=== PATIENT | female | born 1945 | race Caucasian/White ===

== ENCOUNTER 2016-12-14 17:33 | Emergency (ER) | payer MEDICARE ==
[~2016-12-14] VITALS: Ht 154.9 cm; Wt 92.5 kg
[~2016-12-14 17:33] MED LIST: ALEN70 PO; BACT2OIN TOP; CLOP75 PO; COMBAER INH; CYMB60CA PO; ERYT400T4 PO; FERREX; LISI10TA PO; LORT5TAB PO; MUCI600T PO; NIFEREX; POTA-243 PO; VITA10002 PO; ZOCO40TA PO
[2016-12-14 17:38] VITALS: BP 135/65; PULSE 63; RESP 16; TEMP 98.4; O2SAT 94
--- NOTE | 2016-12-14 18:09 | PD ---
HPI Chief Complaint: Bleeding Time Seen by Provider: 18:03 Travel History International Travel<30 days: No Contact w/Intl Traveler<30days: No Traveled to known affect area: No History of Present Illness HPI 71-year-old female history of varicose veins presents via EMS for evaluation of bleeding spontaneously from a varicose vein. She reports that prior to arrival she was standing and she began bleeding from a varicose vein on the lateral right lower leg. The bleeding stopped after paramedics wrapped the wound. It is not currently bleeding. She denies any pain or trauma to the skin. She has no other complaints at this time. PFSH Past Medical History Asthma: Yes Cardiovascular Problems: Yes (htn) High Cholesterol: Yes Cerebrovascular Accident: Yes Diabetes: Yes Hypertension: Yes Psychiatric: Yes Tubal Ligation: Yes Past Surgical History Appendectomy: Yes Cholecystectomy: Yes Hysterectomy: Yes Neurologic Surgery: Yes (C-SPINE FUSION) Other Surgery: Yes (BREAST AUGMENTATION -- VARICOSE VEINS) Social History Alcohol Use: No Tobacco Use: No Substance Use: No Allergies-Medications (Allergen,Severity, Reaction): Coded Allergies: Iodinated Contrast- Oral and IV Dye (Verified Allergy, Severe, 12/14/16) "FELT LIKE I WAS HAVING A STROKE AND A HEART ATTACK AT THE SAME TIME" aspirin (Unverified Allergy, Severe, 12/14/16) UKN REACTION cephalexin (Verified Allergy, Severe, Rash, 12/14/16) morphine (Unverified Allergy, Severe, 12/14/16) UKN REACTION Uncoded Allergies: raw onions (Allergy, Unknown, 10/22/02) Reported Meds & Prescriptions Reported Meds & Active Scripts Active Bactroban (Mupirocin) 22 Gm Oint 2 % TOP BID APPLY TO AFFECTED AREAS Combivent (Albuterol/Ipratropium) 14.7 Gm Aer 2 Puff INH Q6H Ees 400 (Erythromycin Ethylsuccinate) 400 Mg Tab 400 Mg PO TID Reported Lortab 5/500 (Acetaminophen/Hydrocodone Bitart) 5 Mg/500 Mg Tab 1 Tab PO FOR PAIN Fosamax (Alendronate Sodium) 70 Mg Tab 70 Mg PO WEEKLY [Niferex] 150 [Ferrex] Cymbalta (Duloxetine HCl) 60 Mg Cap 60 Mg PO DAILY Lisinopril/Hctz 20/12.5 (HCTZ/Lisinopril) Tab 1 Tab PO DAILY Zocor (Simvastatin) 40 Mg Tab 40 Mg PO HS Klor-Con 10 Meq (Potassium Chloride) 10 Meq Tabcr 40 Meq PO ONCE Plavix (Clopidogrel Bisulfate) 75 Mg Tab 75 Mg PO DAILY Vitamin B12 (Cyanocobalamin) 1,000 Mcg Tab 1,000 Mcg PO DAILY Mucinex (Guaifenesin) 600 Mg Tabcr 600 Mg PO BID Review of Systems General / Constitutional: No: Fever Musculoskeletal: No: Limited ROM Skin: Positive Other (positive for abrasion, bleeding varicose vein lateral right lower leg.) Physical Exam Narrative GENERAL: Well-nourished female in no acute distress SKIN: Warm and dry. CARDIOVASCULAR: Regular rate and rhythm. No murmur appreciated. RESPIRATORY: No accessory muscle use. Clear to auscultation. Breath sounds equal bilaterally. MUSCULOSKELETAL: No obvious deformities. Examination of the legs reveals rare close veins bilaterally. There is a small abrasion to the lateral right lower leg which is where the bleeding was previously coming from. The wound is currently clean and dry and not bleeding actively. NEUROLOGICAL: Awake and alert. No obvious cranial nerve deficits. Motor grossly within normal limits. Normal speech. Data Data Last Documented VS Vital Signs Date Time Temp Pulse Resp B/P (MAP) Pulse Ox O2 Delivery O2 Flow Rate FiO2 12/14/16 17:38 98.4 63 16 135/65 (88) 94 Room Air Orders Orders Gelatin 12 Mm/7 Mm Top (Gelfoam 12 Mm/7 (12/14/16 18:15) Wound Care (12/14/16 18:03) MDM Medical Decision Making Medical Screen Exam Complete: Yes Emergency Medical Condition: Yes Medical Record Reviewed: Yes Differential Diagnosis Bleeding varicose vein, arterial bleeding, abrasion Narrative Course The patient appears to have had an episode of bleeding from one of her an engorged varicose veins. It is not currently bleeding. Plan is for pressure dressing with Gelfoam, Telfa, gauze, Robert, Harley wrap. She is encouraged to leave the dressing on for 2 days and to elevate the legs to reduce venous engorgement. She understands to return here for any new or worsening symptoms. Diagnosis Primary Impression: Bleeding from varicose vein Additional Instructions: Elevate the legs as much as possible to reduce venous engorgement. Keep the dressing on for 2 days. Follow up close with primary care physician and return for any acutely new or worsening symptoms. Med/Other Pt SpecificInfo: Wound Care Disposition: 01 DISCHARGE HOME Condition: Stable Mj Zambrano Dec 14, 2016 18:09
[2016-12-14] MEDS ORDERED: GELATIN 12 MM/7 MM FOAM TOPICAL ONE (18:15)
== END 2016-12-14 20:18 | disposition home or self-care (01) ==
LOC: NEPK 17:33
DX: I83.891 Varicose veins of right lower extremity with other complications (principal); I10 Essential (primary) hypertension; E11.9 Type 2 diabetes mellitus without complications; E78.00 Pure hypercholesterolemia, unspecified
CPT/HCPCS: 12001

== ENCOUNTER 2017-03-22 20:03 | Emergency (ER) | payer MEDICAID, MEDICARE, OTHER ==
[~2017-03-22] VITALS: Ht 154.9 cm; Wt 91.6 kg
[2017-03-22 20:06] VITALS: BP 150/77; PULSE 70; RESP 16; TEMP 98.3; O2SAT 96
--- NOTE | 2017-03-22 20:48 | RADRPT ---
EXAM DATE/TIME: 03/22/2017 20:29 [place] COMPARISON: No previous studies available for comparison. INDICATIONS : Chest pain. MEDICAL HISTORY : Congestive heart failure. Asthma. SURGICAL HISTORY : Right shoulder replacement. ENCOUNTER: Initial ACUITY: 2 days PAIN SCORE: 6/10 LOCATION: Bilateral chest FINDINGS: PA and lateral views of the chest demonstrate the lungs to be symmetrically aerated without evidence of mass, infiltrate or effusion. The cardiomediastinal contours are unremarkable. Osseous structure s are intact. CONCLUSION: No acute intrathoracic disease. Papo Conti MD on March 22, 2017 at 20:46 Board Certified Radiologist. This report was verified electronically.
[2017-03-22 22:12] LABS: AUTOMATED NEUTROPHIL # 3.2 TH/MM3 (1.8-7.7); BASOPHIL % 0.6 % (0.0-2.0); EOSINOPHIL # 0.3 TH/MM3 (0-0.4); EOSINOPHIL % 4.8 % (0.0-4.0); HEMATOCRIT 37.8 % (35.0-46.0); HEMOGLOBIN 12.4 GM/DL (11.6-15.3); LYMPH % 31.3 % (9.0-44.0); LYMPHOCYTE # 1.8 TH/MM3 (1.0-4.8); MEAN CELL VOLUME 79.6 FL (80.0-100.0); MEAN CORPUSCULAR HEMOGLOBIN 26.1 PG (27.0-34.0); MEAN CORPUSCULAR HGB CONC 32.8 % (32.0-36.0); MEAN PLATELET VOLUME 7.8 FL (7.0-11.0); MONO % 7.1 % (0.0-8.0); MONOCYTE # 0.4 TH/MM3 (0-0.9); NEUT % 56.2 % (16.0-70.0); PLATELET COUNT 200 TH/MM3 (150-450); RED BLOOD COUNT 4.75 MIL/MM3 (4.00-5.30); RED CELL DISTRIBUTION WIDTH 16.2 % (11.6-17.2); WHITE BLOOD COUNT 5.7 TH/MM3 (4.0-11.0)
[2017-03-22 22:38] LABS: BICARBONATE 32.9 MEQ/L (21.0-32.0); BLOOD UREA NITROGEN 19 MG/DL (7-18); CALCIUM 9.4 MG/DL (8.5-10.1); CHLORIDE 105 MEQ/L (98-107); CREATININE 0.87 MG/DL (0.50-1.00); GLOMERULAR FILTRATION RATE 64 ML/MIN (>89); GLUCOSE,RANDOM 125 MG/DL (74-106); MAGNESIUM 2.4 MG/DL (1.5-2.5); SODIUM (NA) 145 MEQ/L (136-145)
[2017-03-22 22:42] LABS: TROPONIN I LESS THAN 0.02 NG/ML (0.02-0.05)
[2017-03-23] VITALS: BP_SYST 118; BP_SYST 138; BP_DIAS 76; BP_DIAS 84; PULSE 76; RESP 18; O2SAT 96
--- NOTE | 2017-03-23 00:02 | PD ---
HPI Chief Complaint: Edema Time Seen by Provider: 23:17 Travel History International Travel<30 days: No Contact w/Intl Traveler<30days: No Traveled to known affect area: No History of Present Illness HPI Patient is a 72-year-old female who is down here for a month from [facility]. She is visiting her daughter who is taking custody from her great-granddaughter a [id number] who is disabled and a brand-new . She is saying she is not getting enough sleep she feels tired she feels weak she thinks her feet are swelling. She is on furosemide 20 mg daily and doubles up on and Sundays but that is a regular judgment for years and she has not increased didn' t know her has it affected her feet she feels the swelling is worsening . She has not seem another MD for this complaints. Denies change in Medications PFSH Past Medical History Arthritis: Yes (RA) Asthma: Yes Cardiovascular Problems: Yes (HEART MURMER) High Cholesterol: Yes Cerebrovascular Accident: Yes (TIA) Diabetes: Yes (TYPE 2) Patient Takes Glucophage: Yes Gastrointestinal Disorders: Yes (diverticulitis) Hypertension: Yes Neurologic: Yes (NEUROPATHY) Psychiatric: Yes Sleep Apnea: Yes (CPAP) Tubal Ligation: Yes Past Surgical History Abdominal Surgery: Yes (HERNIA REPAIR X5) Appendectomy: Yes Cholecystectomy: Yes Eye Surgery: Yes (BILAT CATARACT) Hysterectomy: Yes (FULL) Neurologic Surgery: Yes (C-SPINE FUSION) Other Surgery: Yes (BREAST AUGMENTATION/REMOVED -- VARICOSE VEINS, NASAL, ESOPHAGUS STRETCHED) Social History Alcohol Use: No Tobacco Use: No Substance Use: No Allergies-Medications (Allergen,Severity, Reaction): Coded Allergies: Iodinated Contrast- Oral and IV Dye (Verified Allergy, Severe, 03/23/17) "FELT LIKE I WAS HAVING A STROKE AND A HEART ATTACK AT THE SAME TIME" aspirin (Unverified Allergy, Severe, 03/23/17) UKN REACTION cephalexin (Verified Allergy, Severe, Rash, 03/23/17) morphine (Unverified Allergy, Severe, 03/23/17) UKN REACTION Uncoded Allergies: raw onions (Allergy, Unknown, 10/22/02) Reported Meds & Prescriptions Reported Meds & Active Scripts Active Bactrim DS (Sulfamethoxazole-Trimethoprim) 800-160 Mg Tab 1 Tab PO BID Bactroban 2% Oint (22 gm) (Mupirocin) 22 Gm Oint 2 % TOP BID APPLY TO AFFECTED AREAS Combivent (Albuterol/Ipratropium) 14.7 Gm Aer 2 Puff INH Q6H Ees 400 (Erythromycin Ethylsuccinate) 400 Mg Tab 400 Mg PO TID Reported Lortab 5/500 (Acetaminophen/Hydrocodone Bitart) 5 Mg/500 Mg Tab 1 Tab PO FOR PAIN Fosamax (Alendronate Sodium) 70 Mg Tab 70 Mg PO WEEKLY [Niferex] 150 [Ferrex] Cymbalta (Duloxetine HCl) 60 Mg Cap 60 Mg PO DAILY Lisinopril/Hctz 10 mg/12.5 mg 10 mg/12.5 mg Tab 1 Tab PO DAILY Zocor 40 mg (Simvastatin) 40 Mg Tab 40 Mg PO HS Klor-Con 10 Meq (Potassium Chloride) 10 Meq Tabcr 40 Meq PO ONCE Plavix (Clopidogrel Bisulfate) 75 Mg Tab 75 Mg PO DAILY Vitamin B12 (Cyanocobalamin) 1,000 Mcg Tab 1,000 Mcg PO DAILY Mucinex (Guaifenesin) 600 Mg Tabcr 600 Mg PO BID Review of Systems Except as stated in HPI: all other systems reviewed are Neg Cardiovascular: Positive: Edema (feet, and tired feeling in legs) Physical Exam Narrative GENERAL: No apparent distress SKIN: Warm and dry. HEAD: Atraumatic. Normocephalic. EYES: Pupils equal and round. No scleral icterus. No injection or drainage. ENT: No nasal bleeding or discharge. Mucous membranes pink and moist. NECK: Trachea midline. No JVD. CARDIOVASCULAR: Regular rate and rhythm. RESPIRATORY: No accessory muscle use. Clear to auscultation. Breath sounds equal bilaterally. GASTROINTESTINAL: Abdomen soft, non-tender, nondistended. Hepatic and splenic margins not palpable. MUSCULOSKELETAL: Extremities no significant edema noted no pitting, without clubbing, cyanosis, No obvious deformities. NEUROLOGICAL: Awake and alert. No obvious cranial nerve deficits. Motor grossly within normal limits. Five out of 5 muscle strength in the arms and legs. Normal speech. PSYCHIATRIC: Appropriate mood and affect; insight and judgment normal. Data Data Last Documented VS Orders Orders Electrocardiogram (03/22/17 20:12) Basic Metabolic Panel (Bmp) (03/22/17 20:12) B-Type Natriuretic Peptide (03/22/17 20:12) Ckmb (Isoenzyme) Profile (03/22/17 20:12) Complete Blood Count With Diff (03/22/17 20:12) Magnesium (Mg) (03/22/17 20:12) Prothrombin Time / Inr (Pt) (03/22/17 20:12) Act Partial Throm Time (Ptt) (03/22/17 20:12) Troponin I (03/22/17 20:12) Chest, Pa & Lat (03/22/17 20:12) CKMB (03/22/17 21:55) CKMB% (03/22/17 21:55) Urinalysis - C+S If Indicated (03/23/17 00:08) Influenzae A/B Antigen (03/23/17 00:08) Acetaminophen (Tylenol) (03/23/17 00:15) Urine Culture (03/23/17 00:20) Sulfamet-Trimeth Ds 800-160 Mg (Bactrim (03/23/17 02:15) Ed Discharge Order (03/23/17 02:53) Labs Laboratory Tests Test 03/22/17 21:55 03/23/17 00:20 White Blood Count 5.7 TH/MM3 Red Blood Count 4.75 MIL/MM3 Hemoglobin 12.4 GM/DL Hematocrit 37.8 % Mean Corpuscular Volume 79.6 FL Mean Corpuscular Hemoglobin 26.1 PG Mean Corpuscular Hemoglobin Concent 32.8 % Red Cell Distribution Width 16.2 % Platelet Count 200 TH/MM3 Mean Platelet Volume 7.8 FL Neutrophils (%) (Auto) 56.2 % Lymphocytes (%) (Auto) 31.3 % Monocytes (%) (Auto) 7.1 % Eosinophils (%) (Auto) 4.8 % Basophils (%) (Auto) 0.6 % Neutrophils # (Auto) 3.2 TH/MM3 Lymphocytes # (Auto) 1.8 TH/MM3 Monocytes # (Auto) 0.4 TH/MM3 Eosinophils # (Auto) 0.3 TH/MM3 Basophils # (Auto) 0.0 TH/MM3 CBC Comment DIFF FINAL Differential Comment Prothrombin Time 10.0 SEC Prothromb Time International Ratio 1.0 RATIO Activated Partial Thromboplast Time 25.1 SEC Blood Urea Nitrogen 19 MG/DL Creatinine 0.87 MG/DL Random Glucose 125 MG/DL Calcium Level 9.4 MG/DL Magnesium Level 2.4 MG/DL Sodium Level 145 MEQ/L Potassium Level 3.8 MEQ/L Chloride Level 105 MEQ/L Carbon Dioxide Level 32.9 MEQ/L Anion Gap 7 MEQ/L Estimat Glomerular Filtration Rate 64 ML/MIN Total Creatine Kinase 159 U/L Creatine Kinase MB 1.4 NG/ML Troponin I LESS THAN 0.02 NG/ML B-Type Natriuretic Peptide 20 PG/ML Urine Color YELLOW Urine Turbidity CLEAR Urine pH 6.0 Urine Specific [place] 1.023 Urine Protein TRACE mg/dL Urine Glucose (UA) NEG mg/dL Urine Ketones NEG mg/dL Urine Occult Blood NEG Urine Nitrite NEG Urine Bilirubin NEG Urine Urobilinogen 4.0 MG/DL Urine Leukocyte Esterase LARGE Urine RBC 2 /hpf Urine WBC 11 /hpf Urine Squamous Epithelial Cells 2 /hpf Urine Transitional Epithelial Cells <1 /hpf Urine Calcium Oxalate Crystals RARE /hpf Urine Bacteria RARE /hpf Urine Hyaline Casts 1 /lpf Urine Mucus FEW /lpf Microscopic Urinalysis Comment CULTURE INDICATED MDM Medical Decision Making Medical Screen Exam Complete: Yes Emergency Medical Condition: Yes Differential Diagnosis Pt could have venous insufficiency and valvular incompetence vs excessive standing vs excessive salt intake vs renal or cardiogenic causes of the minimla fluid she feels , I see no eveidence of significant edema and no signs to suggest cardiac or renal causes and no need for further eval in Er Narrative Course Labs and Urine showing WBC and leuko will treat as UTI and no need for diuretic at this time as no signs of fluid overload. Diagnosis Primary Impression: UTI (urinary tract infection) Patient Instructions: General Instructions, Urinary Tract Infection in Women ( ED) Scripts Sulfamethoxazole-Trimethoprim (Bactrim DS) 800-160 Mg Tab 1 TAB PO BID for Infection, #14 TAB 0 Refills Prov: Richy Sequeira MD 03/23/17 Disposition: 01 DISCHARGE HOME Condition: Good Richy Sequeira MD Mar 23, 2017 00:02
[2017-03-23] MEDS ORDERED: ACETAMINOPHEN 325 MG TAB PO ONE (00:15)
[2017-03-23 00:43] LABS: BACTERIA, URINE RARE /hpf; BILIRUBIN, URINE NEG (NEG); BLOOD, URINE NEG (NEG); CALCIUM OXALATE CRYSTALS,URINE RARE /hpf; GLUCOSE,URINE NEG (NEG); HYALINE CAST, URINE 1 /lpf (RARE); KETONE, URINE NEG (NEG); MUCUS URINE FEW /lpf (OCC); NITRITE,URINE NEG (NEG); SQUAMOUS EPITHELIAL CELL URINE 2 /hpf (0-5); TRANSITIONAL EPI CELLS, URINE <1 /hpf; URINE COLOR YELLOW (YELLW/STRAW); URINE LEUKOCYTE ESTERASE LARGE (NEG)
[2017-03-23] MEDS ORDERED: SULFAMETHOXAZOLE-TRIMETHOPRIM DS 800-160 MG TAB PO ONE (02:15)
[2017-03-23] MEDS ORDERED: BACT800T5 PO (02:52)
--- NOTE | 2017-03-23 20:29 | EKG ---
Date Performed: 03/22/2017 Time Performed: 21:47:04 PTAGE: 72 years EKG: SINUS BRADYCARDIA LEFT VENTRICULAR HYPERTROPHY AND ST-T CHANGE POSSIBLE LATERAL MYOCARDIAL INFARCTION ABNORMAL ECG Since the prior tracing, there has been no significant change PREVIOUS TRACING : 10/12/2003 22.38 DOCTOR: Darrell Berry Interpretating Date/Time 03/23/2017 20:21:48
== END 2017-03-23 03:30 | disposition home or self-care (01) ==
LOC: NEPE 20:03
DX: N39.0 Urinary tract infection, site not specified (principal); I10 Essential (primary) hypertension; I50.9 Heart failure, unspecified; E78.00 Pure hypercholesterolemia, unspecified; E11.9 Type 2 diabetes mellitus without complications; M06.9 Rheumatoid arthritis, unspecified; J45.909 Unspecified asthma, uncomplicated; R94.31 Abnormal electrocardiogram [ECG] [EKG]; Z86.73 Personal history of transient ischemic attack (TIA), and cerebral infarction without residual deficits; Z88.8 Allergy status to other drugs, medicaments and biological substances; Z79.899 Other long term (current) drug therapy
CPT/HCPCS: 71046; 80048; 81001; 82550; 82552; 83735; 83880; 84484; 85025; 85610; 85730; 87086; 87804; 93005; 99285

== ENCOUNTER 2017-11-14 19:45 | Observation (INO) ==
[2017-11-14 21:04] LABS: Baso % (Auto) 0.3 % (0.0-2.0); Eos # (Auto) 0.2 th/mm3 (0.0-0.4); Eos % (Auto) 2.8 % (0.0-4.0); Hematocrit 36.7 % (35.0-46.0); Lymph % (Auto) 26.8 % (9.0-44.0); Mean Corpuscular HGB Conc 32.7 % (32.0-36.0); Mean Corpuscular Hemoglobin 25.5 pg (27.0-34.0); Mean Platelet Volume 8.4 fL (7.0-11.0); Mono # (Auto) 0.5 th/mm3 (0.0-0.9); Mono % (Auto) 7.1 % (0.0-8.0); Neut # (Auto) 4.8 th/mm3 (1.8-7.7); Platelet Count 217 th/mm3 (150-450); Red Blood Count 4.71 mil/mm3 (4.00-5.30); Red Cell Distribution Width 17.2 % (11.6-17.2); White Blood Count 7.6 th/mm3 (4.0-11.0)
[2017-11-14 21:19] LABS: Albumin 3.8 g/dL (3.4-5.0); Anion Gap 8 meq/L (5-15); Aspartate Aminotransferase 117 U/L (15-37); Blood Urea Nitrogen 18 mg/dL (7-18); Calcium 9.4 mg/dL (8.5-10.1); Chloride 109 meq/L (98-107); Glomerular Filtration Rate 81 mL/min (>89); Glucose,Random 97 mg/dL (74-106); Potassium 4.1 meq/L (3.5-5.1); Sodium 144 meq/L (136-145)
[2017-11-14 21:20] LABS: Alanine Aminotransferase 69 U/L (10-53)
--- NOTE | 2017-11-14 21:23 | XR ---
EXAM DATE: 11/14/2017 8:28 PM EDT AGE/SEX: 72 years / Female INDICATIONS: Short of breath. CLINICAL DATA: This is the patient's initial encounter. Patient reports that signs and symptoms have been present for 1 day and indicates a pain score of 5/10. MEDICAL/SURGICAL HISTORY: Non-responsive. Non-responsive. COMPARISON: [facility] [place], CHEST PA & LAT, 03/22/2017. . FINDINGS: Mild perihilar infiltrates are present. No pleural effusion. No pneumothorax. Heart size stable, within normal limits. CONCLUSION: Mild edema and/or atypical infiltrates. Electronically signed by: Abhishek Gonzalez MD 11/14/2017 9:21 PM EDT
[2017-11-14 21:24] LABS: Alkaline Phosphatase 99 U/L (45-117); Total Protein 6.7 g/dL (6.4-8.2)
--- NOTE | 2017-11-14 23:07 | CT ---
EXAM DATE: 11/14/2017 10:01 PM EDT AGE/SEX: 72 years / Female INDICATIONS: Epigastric pain that radiates to back. CLINICAL DATA: This is the patient's initial encounter. Patient reports that signs and symptoms have been present for 1 day and indicates a pain score of 4/10. MEDICAL/SURGICAL HISTORY: Diabetes. Hypertension. Carcinoma, skin cancer. Appendectomy. Hysterec kamari. Hernia surgery. RADIATION DOSE: 9.02 CTDI (mGy) COMPARISON: No prior exams available for comparison. TECHNIQUE: Volumetric scanning was performed using a multi-row detector CT scanner during bolus infu quentin of 100 ml Omnipaque 350 (iohexol) nonionic water-soluble contrast as a single exam dose. The d kyleigh was post processed with a variety of visualization algorithms including full volume maximum inten sity projection, multi-planar sliding thin slab reformation, curved planar reformation, and surface r endering techniques. Using automated exposure control and adjustment of the mA and/or kV according t o patient size, radiation dose was kept as low as reasonably achievable to obtain optimal diagnostic quality images. DICOM format image data is available electronically for review and comparison. FINDINGS: Angiographic Findings: Ascending: Normal in [place] without evidence for dissection. Arch: Normal 3 vessel arch anatomy. Proximal arch vessels are patent. Arch is normal in caliber witho ut dissection. Descending: Normal in [place] without evidence for dissection. Abdominal Aorta: Normal in caliber without significant flow limiting stenosis or dissection. Iliacs: The iliac arteries are patent and non-aneurysmal Renal Arteries: Single patent renal arteries. Mesenteric Arteries: Mild stenosis of the celiac and SMA origins secondary to eccentric plaque. [place] i s patent.: General Findings: LUNGS: Minimal groundglass opacities in the inferior lower lobes bilaterally likely reflecting volum e loss. PLEURA: No effusion, significant pleural thickening or pneumothorax. MEDIASTINUM: Heart is unremarkable without pericardial effusion. Mild coronary artery calcifications . No evidence of mediastinal or hilar adenopathy. LIVER: Diffusely decreased hepatic attenuation without significant focal mass or intrahepatic ductal dilatation. Gallbladder is surgically absent. SPLEEN: Normal in size. 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 PANCREAS: Fatty replaced. KIDNEYS: Kidneys demonstrate symmetrical enhancement and are symmetrical in size without evidence fo r radiopaque renal calculi or hydronephrosis. ADRENAL GLANDS: Unremarkable. BOWEL/MESENTERY: Mild to moderate sigmoid diverticulosis and scattered colonic diverticula. No signi ficant inflammatory change to suggest diverticulitis. Bowel loops are normal in caliber without evide nce for obstruction. No free air or free fluid. No pneumatosis. ABDOMINAL WALL: Intact. RETROPERITONEUM: No evidence of adenopathy in the retrocrural, para-aortic, or deep pelvic regions. BLADDER: Contours are smooth. REPRODUCTIVE: No abnormal masses or calcifications seen. BONY STRUCTURES: Degenerative spondylosis of the lumbar spine most prominently at L3-S1. CONCLUSION: 1. No evidence for aortic dissection or aneurysm. 2. Mild celiac and SMA stenosis. Patent [place]. 3. Diffusely decreased hepatic attenuation consistent with hepatic steatosis versus medical liver di sease. 4. Colonic diverticulosis without definitive evidence for diverticulitis. Electronically signed by: Con Brown MD 11/14/2017 11:06 PM EDT
--- NOTE | 2017-11-14 23:22 | ED ---
HPI General Chief complaint: Abdominal Pain Stated complaint: Abd Pain Time Seen by Provider: 11/14/17 20:21 History of Present Illness HPI narrative: This is a 72-year-old female presents emergency department for evaluation of pain just underneath her left breast which started about an hour prior to arrival. Does endorse diaphoresis she is also endorses mild nausea. Denies shortness of breath. states the pain radiated up into her chest as well as into her back. Recently traveled today. Patient states that she sees a interior design faculty member because she has a history of heart murmur but does not know when the last time she had a stress test or cardiac catheterization. Symptoms were severe, now resolved, associated signs symptoms in context as above. Of note the patient does state that she has a history of IV contrast allergy however on her description it sounds more like she is having allergy to thallium from a thallium stress test. She was told that her physician told her that it looked like she had a heart attack and a stroke after receiving the medication. Related Data Allergies Allergy/AdvReac Type Severity Reaction Status Date / Time aspirin Allergy Severe . Verified 11/14/17 23:14 cephalexin Allergy Severe Rash Verified 11/14/17 23:14 morphine Allergy Severe . Verified 11/14/17 23:14 raw onions Allergy Unknown . Uncoded 11/14/17 23:14 Review of Systems ROS: all other systems reviewed are negative PMFSH Medical History Medical History Appendicitis (Acute) Chronic back pain (Acute) Chronic knee pain (Acute) Diabetes (Acute) Diverticula of colon (Acute) Fusion of spine, cervical region (Acute) H/O: hysterectomy (Acute) Hypertension (Acute) MRSA infection (Acute) Neuropathy (Acute) Skin cancer (Acute) Surgical History Surgical History H/O eye surgery (Acute) H/O foot surgery (Acute) H/O shoulder replacement (Acute) History of hernia surgery (Acute) Social History Social History Substance History: No History of Abuse Second Hand Smoke Exposure: No Smoking Status: Never smoker How Often Do You Have a Drink Containing Alcohol: Never Recent Travel in [facility] within the Last 8 Weeks: No Immunization History Tetanus Immunization: >5 Years Hx Influenza Vaccine This Season: No Exam Narrative Exam Narrative: GENERAL: Well-developed well-nourished no obvious distress. SKIN: Focused skin assessment warm/dry. HEAD: Atraumatic. Normocephalic. EYES: Pupils equal and round. No scleral icterus. No injection or drainage. ENT: No nasal bleeding or discharge. Mucous membranes pink and moist. NECK: Trachea midline. No JVD. CARDIOVASCULAR: Regular rate and rhythm. No murmur appreciated. RESPIRATORY: No accessory muscle use. Clear to auscultation. Breath sounds equal bilaterally. GASTROINTESTINAL: Abdomen soft, non-tender, nondistended. Hepatic and splenic margins not palpable. MUSCULOSKELETAL: No obvious deformities. No clubbing. No cyanosis. No edema. NEUROLOGICAL: Awake and alert. No obvious cranial nerve deficits. Motor grossly within normal limits. Normal speech. PSYCHIATRIC: Appropriate mood and affect; insight and judgment normal. Course Initial Documented Vital Signs Temperature 98.0 F 11/14/17 19:59 Pulse Rate 55 L 11/14/17 19:59 Respiratory Rate 15 11/14/17 19:59 Blood Pressure 172/77 H 11/14/17 19:59 Pulse Oximetry 91 L 11/14/17 19:59 Last Documented Vital Signs Temperature 98.0 F 11/14/17 19:59 Pulse Rate 55 L 11/14/17 19:59 Respiratory Rate 15 11/14/17 19:59 Blood Pressure 172/77 H 11/14/17 19:59 Pulse Oximetry 98 11/14/17 20:09 Medical Decision Making MDM Narrative Medical decision making narrative: Patient room to the emergency department, given the chest pain radiating to her back, it is reasonable to consider aortic pathology as a possible cause of her pain. A CTA was performed patient tolerated fine without any premedication. CTA showed only minimal stenosis of her SMA which I do not think is consistent with her pain. She looks completely well and her abdomen is benign. I think coronary artery disease is still a consideration the patient will be admitted to chest pain center. PE was also considered but I think it is fairly low on the differential. She has not had any shortness of breath. No hemoptysis. Discussed the role results with the patient and she will be admitted and she is agreeable. She also has aspirin on her allergy list, however she takes aspirin daily. Medical Screen Exam Complete: Yes Emergency Medical Condition: Yes Differential Diagnosis Differential Diagnosis: ACS, CO, gastritis, gastroenteritis, aortic dissection, aortic aneurysm. Lab Data Result diagrams: 11/14/17 20:10 11/14/17 20:10 Lab Results 11/14/17 11/14/17 Range/Units 20:10 20:10 WBC 7.6 (4.0-11.0) th/mm3 RBC 4.71 (4.00-5.30) mil/mm3 Hgb 12.0 (11.6-15.3) gm/dL Hct 36.7 (35.0-46.0) % MCV 78.0 L (80.0-100.0) fL MCH 25.5 L (27.0-34.0) pg MCHC 32.7 (32.0-36.0) % RDW 17.2 (11.6-17.2) % Plt Count 217 (150-450) th/mm3 MPV 8.4 (7.0-11.0) fL Neut % (Auto) 63.0 (16.0-70.0) % Lymph % (Auto) 26.8 (9.0-44.0) % Martin % (Auto) 7.1 (0.0-8.0) % Eos % (Auto) 2.8 (0.0-4.0) % Baso % (Auto) 0.3 (0.0-2.0) % Neut # (Auto) 4.8 (1.8-7.7) th/mm3 Lymph # (Auto) 2.0 (1.0-4.8) th/mm3 Martin # (Auto) 0.5 (0.0-0.9) th/mm3 Eos # (Auto) 0.2 (0.0-0.4) th/mm3 Baso # (Auto) 0.0 (0.0-0.2) th/mm3 WBC Differential . Differential Comment Auto diff final Sodium 144 (136-145) meq/L Potassium 4.1 (3.5-5.1) meq/L Chloride 109 H (98-107) meq/L Carbon Dioxide 27.0 (21.0-32.0) meq/L Anion Gap 8 (5-15) meq/L BUN 18 (7-18) mg/dL Creatinine 0.71 (0.50-1.00) mg/dL Estimated GFR 81 L (>89) mL/min Random Glucose 97 (74-106) mg/dL Calcium 9.4 (8.5-10.1) mg/dL Total Bilirubin 0.4 (0.2-1.0) mg/dL AST 117 H (15-37) U/L ALT 69 H (10-53) U/L Alkaline Phosphatase 99 (45-117) U/L Troponin I Less than 0.02 L (0.02-0.05) ng/mL Total Protein 6.7 (6.4-8.2) g/dL Albumin 3.8 (3.4-5.0) g/dL Imaging Data Radiologist's impression: Chest X-Ray 11/14/17 20:28 CONCLUSION: Mild edema and/or atypical infiltrates. Thoracic Aorta CT 11/14/17 20:28 CONCLUSION: 1. No evidence for aortic dissection or aneurysm. 2. Mild celiac and SMA stenosis. Patent [place]. 3. Diffusely decreased hepatic attenuation consistent with hepatic steatosis versus medical liver disease. 4. Colonic diverticulosis without definitive evidence for diverticulitis. Discharge Plan Discharge Disposition Patient Disposition: 30 Still Patient Discharge Details Diagnosis: Chest pain Physicians Team ED Provider: Chandler Bryant Primary Care Provider: UNKNOWN, Attending Provider: Loni Moreland Status ED Status: Admitted Observation Patient
[2017-11-15 01:14] LABS: Creatine Kinase 49 U/L (26-192)
[2017-11-15 04:46] LABS: Creatine Kinase 46 U/L (26-192)
[2017-11-15 08:25] VITALS: BP 133/74; TEMP 97.7; O2SAT 95
[2017-11-15 08:47] VITALS: PULSE 52
--- NOTE | 2017-11-15 08:53 | P.HPCA ---
History of Present Illness Primary Care Physician: UNKNOWN Chief Complaint: Chest pain History of Present Illness: 72-year-old female with history of chronic back pain, neuropathy, diabetes, hypertension, and hyperlipidemia presents emergency room for further evaluation of chest pain. Onset last evening. Characterized as sharp. Location left inframammary area with radiation to left shoulder, mid back, and right upper quadrant pain associated symptoms include fatigue and diaphoresis. Denied nausea, vomiting, or dyspnea. Severe in severity. Duration 30 minutes followed by lingering discomfort. No current chest pain. Denies similar pain in the past. No precipitating or relieving factors. No particular position or movement made pain better or worse. No recent illness, fever, or injury. Recently completed full day of travel from [place] to [place]. Plans to remain in [place] for the next month. Past cardiac testing Lexiscan reported normal 2 years ago, completed in [place]. 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 Social history Known hypertension, diabetes, and hyperlipidemia. No known coronary artery disease. Lifelong non-smoker. Denies any alcohol or recreational drug use. - Diagnosis (1) Chest pain (2) History of type 2 diabetes mellitus (3) History of hyperlipidemia (4) History of chronic back pain (5) History of hypertension Review of Systems All other systems reviewed negative except as stated in HPI PMFSH - History History Provided By: Patient - Medical History Medical History: Medical History (Last Reviewed 11/15/17 @ 10:09 by JOSE Boogie) Appendicitis Chronic back pain Chronic knee pain Diabetes Diverticula of colon Fusion of spine, cervical region H/O: hysterectomy Hypertension MRSA infection Neuropathy Skin cancer - Surgical History Surgical History: Surgical History (Last Reviewed 11/15/17 @ 10:09 by JOSE Boogie) H/O eye surgery H/O foot surgery H/O shoulder replacement History of hernia surgery - Social History I have reviewed the patient's Social History: Yes - Tobacco History Second Hand Smoke Exposure: No Tobacco Use In Past 30 Days: No Smoking Status: Never smoker - Alcohol History How Often Do You Have a Drink Containing Alcohol: Never - Substance Use History Substance History: No History of Abuse - Travel History History of Recent Travel: No Recent Travel in the [facility] Within the Last 8 Weeks: No Recent Travel Out of the Country Within the Last 8 Weeks: No - Immunization History Tetanus Immunization: >5 Years Hx Influenza Vaccine This Season: No Medications and Allergies Active Medications: Active Medications Sodium Chloride (Ns Flush) 2 ml IV.FLUSH UNSCH PRN PRN Reason: FLUSH AFTER USING IV ACCESS Last Admin: 11/14/17 23:30 Dose: 2 ml Sodium Chloride (Ns Flush) 2 ml IV.FLUSH PRN PRN PRN Reason: FLUSH AFTER USING IV ACCESS Sodium Chloride (Ns Flush) 2 ml IV.FLUSH BID GRANT Last Admin: 11/15/17 08:09 Dose: 2 ml Allergies Allergy/AdvReac Type Severity Reaction Status Date / Time aspirin Allergy Severe . Verified 11/14/17 23:14 cephalexin Allergy Severe Rash Verified 11/14/17 23:14 morphine Allergy Severe . Verified 11/14/17 23:14 raw onions Allergy Unknown . Uncoded 11/14/17 23:14 Home Medications Medication Instructions Recorded Confirmed Type albuterol sulfate [ProAir HFA] 2 puff INHALATION Q4-6H PRN 11/14/17 11/14/17 History calcium carbonate-vitamin D3 1 tab PO BID 11/14/17 11/14/17 History [Calcium 500 + D] ezetimibe [Zetia] 10 mg PO DAILY 11/14/17 11/14/17 History furosemide 20 mg PO DAILY 11/14/17 11/14/17 History gabapentin 300 mg PO TID 11/14/17 11/14/17 History hydrocodone-acetaminophen 1 tab PO Q6H PRN 11/14/17 11/14/17 History metformin 500 mg PO BID 11/14/17 11/14/17 History pantoprazole 40 mg PO DAILY 11/14/17 11/14/17 History potassium chloride [Klor-Con 10] 10 meq PO DAILY 11/14/17 11/14/17 History sertraline [Zoloft] 50 mg PO DAILY 11/14/17 11/14/17 History sitagliptin [Januvia] 100 mg PO DAILY 11/14/17 11/14/17 History Exam Vital signs: Vital Signs 11/14/17 19:59 11/14/17 20:09 11/14/17 23:10 Temperature 98.0 F Pulse Rate 55 L 75 Respiratory Rate 15 20 Blood Pressure 172/77 H 175/80 H Pulse Oximetry 91 L 98 97 11/15/17 00:55 11/15/17 04:00 11/15/17 08:00 Temperature 97.8 F 97.7 F Pulse Rate 48 L 52 L Respiratory Rate 16 16 Blood Pressure 158/70 H 133/74 Pulse Oximetry 98 98 95 Intake & Output 11/14/17 11/15/17 11/15/17 18:59 06:59 18:59 Weight 92.53 kg Other: Weight On Admission 92.533 kg Narrative: GENERAL: Alert WN, WD, NAD, pleasant, , obese elderly female HEAD: NC, AT CV: RRR, without murmur, rub, gallop, no JVD, S1-S2. Chest pain nontender with palpation. RESP: Clear lungs throughout bilateral, no crackles, wheeze, rhonchi, symmetrical chest rise, nonlabored, able to speak in full sentences ABD: Soft, NT, ND, no masses, positive bowel tones EXT: Pulses +2x4, no dependent edema MS: Normal tone x4 extremities, nontender, no obvious deformities, full range of motion NEURO: CN II through CN XII grossly intact, motor strength 5/5 PSYCH: A+O x3, pleasant affect, appropriate speech, mood, insight and judgment SKIN: Normal turgor, normal texture, no lesions, no rashes Results 11/14/17 20:10 11/14/17 20:10 Cardiac Enzymes 11/14/17 11/15/17 11/15/17 Range/Units 20:10 00:35 03:57 AST 117 H (15-37) U/L Troponin I Less than 0.02 L Less than 0.02 L Less than 0.02 L (0.02-0.05) ng/mL CBC 11/14/17 Range/Units 20:10 WBC 7.6 (4.0-11.0) th/mm3 RBC 4.71 (4.00-5.30) mil/mm3 Hgb 12.0 (11.6-15.3) gm/dL Hct 36.7 (35.0-46.0) % Plt Count 217 (150-450) th/mm3 Neut # (Auto) 4.8 (1.8-7.7) th/mm3 Lymph # (Auto) 2.0 (1.0-4.8) th/mm3 [place] # (Auto) 0.5 (0.0-0.9) th/mm3 Eos # (Auto) 0.2 (0.0-0.4) th/mm3 Baso # (Auto) 0.0 (0.0-0.2) th/mm3 Comprehensive Metabolic Panel 11/14/17 Range/Units 20:10 Sodium 144 (136-145) meq/L Potassium 4.1 (3.5-5.1) meq/L Chloride 109 H (98-107) meq/L Carbon Dioxide 27.0 (21.0-32.0) meq/L BUN 18 (7-18) mg/dL Creatinine 0.71 (0.50-1.00) mg/dL Calcium 9.4 (8.5-10.1) mg/dL AST 117 H (15-37) U/L ALT 69 H (10-53) U/L Alkaline Phosphatase 99 (45-117) U/L Total Protein 6.7 (6.4-8.2) g/dL Albumin 3.8 (3.4-5.0) g/dL Intake and Output 11/14/17 11/15/17 11/15/17 22:59 06:59 14:59 Other: Weight 92.533 kg 92.53 kg Weight On Admission 92.533 kg - Imaging and Cardiology Imaging: Impressions Chest X-Ray 11/14/17 20:28 CONCLUSION: Mild edema and/or atypical infiltrates. Thoracic Aorta CT 11/14/17 20:28 CONCLUSION: 1. No evidence for aortic dissection or aneurysm. 2. Mild celiac and SMA stenosis. Patent [place]. 3. Diffusely decreased hepatic attenuation consistent with hepatic steatosis versus medical liver disease. 4. Colonic diverticulosis without definitive evidence for diverticulitis. EKG interpretations - EKG EKG results cardiology: sinus rhythm, normal axis, normal QRS (Normal sinus bradycardia, no ST-T segment change) Caprini VTE Risk Assessment Caprini VTE Risk Assessment: Moderate/High Risk (score >= 2) Caprini Risk Assessment Model: Point Value = 1 Point Value = 2 Point Value = 3 Point Value = 5 Age 41-60 Minor surgery BMI > 25 kg/m2 Swollen legs Varicose veins or History of unexplained or recurrent spontaneous Oral contraceptives or hormone replacement Sepsis (< 1 month) Serious lung disease, including pneumonia (< 1 month) Abnormal pulmonary function Acute myocardial infarction Congestive heart failure (< 1 month) History of inflammatory bowel disease Medical patient at bed rest Age 61-74 Arthroscopic surgery Major open surgery (> 45 min) Laparoscopic surgery (> 45 min) Malignancy Confined to bed (> 72 hours) Immobilizing plaster cast Central venous access Age >= 75 History of VTE Family history of VTE Factor V Leiden Prothrombin [id number] Lupus anticoagulant Anticardiolipin antibodies Elevated serum homocysteine Heparin-induced thrombocytopenia Other congenital or acquired thrombophilia Stroke (< 1 month) Elective arthroplasty Hip, pelvis, or leg fracture Acute spinal cord injury (< 1 month) Prophylaxis Regimen: Total Risk Factor Score Risk Level Prophylaxis Regimen 0-1 Low Early ambulation 2 Moderate Order ONE of the following: *Sequential Compression Device (SCD) *Heparin 5000 units SQ BID 3-4 Higher Order ONE of the following medications: *Heparin 5000 units SQ TID *Enoxaparin/Lovenox 40 mg SQ daily (WT < 150 kg, CrCl > 30 mL/min) *Enoxaparin/Lovenox 30 mg SQ daily (WT < 150 kg, CrCl > 10-29 mL/min) *Enoxaparin/Lovenox 30 mg SQ BID (WT < 150 kg, CrCl > 30 mL/min) AND/OR *Sequential Compression Device (SCD) 5 or more Highest Order ONE of the following medications: *Heparin 5000 units SQ TID (Preferred with Epidurals) *Enoxaparin/Lovenox 40 mg SQ daily (WT < 150 kg, CrCl > 30 mL/min) *Enoxaparin/Lovenox 30 mg SQ daily (WT < 150 kg, CrCl > 10-29 mL/min) *Enoxaparin/Lovenox 30 mg SQ BID (WT < 150 kg, CrCl > 30 mL/min) AND *Sequential Compression Device (SCD) Assessment and Plan - Assessment (1) Chest pain Code(s): R07.9 - Chest pain, unspecified Status: Acute Plan: Admitted chest pain center. ACS ruled out 3 sets of EKGs and cardiac enzymes. Monitor on telemetry overnight. Seen and evaluated by Dr. Kayode Skelton. Proceed with repeating Lexiscan this a.m. If unremarkable, plan to discharge home with follow-up with primary care provider and retail shift leader once returning in [place]. Verbalized understanding and agreeable to plan of care. (2) History of type 2 diabetes mellitus Code(s): Z86.39 - Personal history of other endocrine, nutritional and metabolic disease Status: Chronic Plan: Hold metformin until cardiac testing completed. (3) History of hyperlipidemia Code(s): Z86.39 - Personal history of other endocrine, nutritional and metabolic disease Status: Chronic Plan: Continue ezetimibe. (4) History of chronic back pain Code(s): Z87.39 - Personal history of other diseases of the musculoskeletal system and connective tissue Status: Chronic Plan: Continue hydrocodone/acetaminophen (5) History of hypertension Code(s): Z86.79 - Personal history of other diseases of the circulatory system Status: Chronic Plan: Continue to monitor. Continue furosemide. H&P: Quality - VTE Deep Vein Thrombosis/Pulmonary Embolism Present on Admission: No (1) Chest pain Qualifiers: Chest pain type: unspecified Qualified Code(s): R07.9 - Chest pain, unspecified
[2017-11-15] MEDS ORDERED: Ezetimibe 10 MG Tablet PO SCH (10:15)
[2017-11-15] MEDS ORDERED: Sertraline 50 MG Tablet PO SCH (10:15)
[2017-11-15] MEDS ORDERED: Furosemide 20 MG Tablet PO SCH (10:15)
[2017-11-15] MEDS ORDERED: Dextrose 50% in Water 50 ML Vial IV.PUSH PRN (10:16)
[2017-11-15 11:33] VITALS: RESP 20
[2017-11-15] MEDS ORDERED: Regadenoson Inj 0.4 MG/5 ML Syringe IV.PUSH ONE (11:48)
[2017-11-15] MEDS ORDERED: Insulin NovoLOG Aspart Correctional Sugar Inj SQ SCH (12:00)
[2017-11-15] MEDS ORDERED: Gabapentin 300 MG Capsule PO SCH (13:00)
--- NOTE | 2017-11-15 13:47 | NM ---
EXAM DATE: 11/15/2017 11:45 AM EDT AGE/SEX: 72 years / Female INDICATIONS:Angina. . Chest pain underneath left breast radiating up chest and back. CLINICAL DATA: This is the patient's initial encounter. Patient reports that signs and symptoms have been present for 1 day and indicates a pain score of 3/10. MEDICAL/SURGICAL HISTORY: Diabetes. Hypertension. Appendicitis, chronic back pain, diverticuli tis, history of MRSA infection, and neuropathy. Fusion, cervical. Hernia surgery, shoulder replaceme nt, eye and foot surgery. COMPARISON: No prior exams available for comparison. DOSE: 8.8 mCi Tc 99m Myoview at rest 26 mCi [id number] at stress 0.4 mg Lexiscan STRESS SYMPTOMS: Stomach pressure, headache and chest pressure. EJECTION FRACTION: 63 % TECHNIQUE: The patient underwent pharmacologic stress with infusion of prescribed dose. Continuous ECG tracing was monitored during stress. Gated SPECT imaging was performed after stress and conventi onal SPECT imaging was performed at rest. The examination was performed on a SPECT/CT scanner, both attenuation and non-corrected datasets were reviewed. FINDINGS: Distribution: The maximum perfused segment at stress is in the lateral wall and septum. Activity milan s obscure the inferior wall. Perfusion Study: The pattern of perfusion at stress is within normal limits. Gated Study: There are intact wall motion and wall thickening without hypokinetic or dyskinetic segm ents. The ejection fraction is calculated at 63%. RISK CATEGORY: Low (<1% Annual Motality Rate) CONCLUSION: 1. Negative for significant stress-induced ischemia. Activity does obscure the inferior wall. Electronically signed by: Brandon Charles MD 11/15/2017 1:46 PM EDT
--- NOTE | 2017-11-15 14:50 | ECG ---
Date Performed: 11/15/2017 Time Performed: 04:04:49 PTAGE: 72 years EKG: SINUS BRADYCARDIA BORDERLINE ECG PREVIOUS TRACING : 11/14/2017 21.52 Since previous tracing, no significant change noted DOCTOR: Kayode Skelton Interpretating Date/Time 11/15/2017 14:49:28
--- NOTE | 2017-11-15 14:52 | ECG ---
Date Performed: 11/14/2017 Time Performed: 21:52:44 PTAGE: 72 years EKG: SINUS BRADYCARDIA BORDERLINE ECG PREVIOUS TRACING : 03/22/2017 21.47 Since previous tracing, no significant change noted DOCTOR: Kayode Skelton Interpretating Date/Time 11/15/2017 14:51:45
--- NOTE | 2017-11-15 14:55 | TR ---
Date Performed: 11/15/2017 Time Performed: 12:04:42 DOCTOR: Kayode Skelton DRUG LIST: CLINICAL HISTORY: REASON FOR TEST: REASON FOR ENDING: OBSERVATION: CONCLUSION: COMMENTS: Lexiscan stress test was performed under standard four minute protocol. Radionuclide was injected one minute prior to ending the test. No electrocardiographic abormalities were present t o suggest ischemia. Nuclear imaging and interpretation are pending.
== END 2017-11-15 15:45 | disposition home or self-care (01) ==
LOC: NEPE 19:45 → NEDA 19:45 → NEPFCDU 11-15 00:42
PROVIDERS: ADMIT Internal Medicine Interventional Cardiology; ATTEND Internal Medicine Interventional Cardiology